=== PATIENT | female | born 1990 | race Caucasian/White ===

== ENCOUNTER 2016-10-18 11:11 | Emergency (ER) | payer OTHER ==
[~2016-10-18] VITALS: Ht 157.5 cm; Wt 48.0 kg
[~2016-10-18 11:11] MED LIST: CLEOCIN300 MG PO; LEXAPRO20 MG PO; MOTRIN600 MG PO; OMEPRAZOLE20 MG PO
[2016-10-18] MEDS ORDERED: LITHIUM CARBON600 MG PO (11:28)
[2016-10-18] MEDS ORDERED: PROPRANOLOL HCL10 MG PO (11:29)
[2016-10-18] MEDS ORDERED: GEODON40 MG PO (11:29)
[2016-10-18] MEDS ORDERED: REGLAN10 MG PO (15:12)
[2016-10-18] MEDS ORDERED: NAPROSYN500 MG PO (15:12)
[2016-10-18] MEDS ORDERED: IMITREX100 MG PO (15:12)
[2016-10-18 16:20] LABS: ADD MIUA? YES; BILIRUBIN NEGATIVE; BLOOD NEGATIVE; COLOR YELLOW ((YELLOW)); GLUCOSE (STRIP) NEGATIVE; KETONES 15; LEUKOCYTES SMALL; NITRITE NEGATIVE; PROTEIN (STRIP) NEGATIVE; SPECIFIC GRAVITY 1.001 (1.000-1.030); UROBILINOGEN 0.2 MG/DL (0.2-1.0)
[2016-10-18 16:50] VITALS: BP 98/53
[2016-10-18 17:01] LABS: RED BLOOD CELLS NONE SEEN /HPF (0-5)
[2016-10-18 17:02] LABS: BACTERIA RARE; EPITHELIAL CELLS 1+; MUCUS 1+; WHITE BLOOD CELLS 0-5 /HPF (0-5)
[2016-10-18 17:03] LABS: CASTS NONE SEEN /LPF; CRYSTALS NONE SEEN
== END 2016-10-18 16:51 | disposition home or self-care (01) ==
LOC: EME 11:11
PROVIDERS: Physician Assistant
DX: G43.909 Migraine, unspecified, not intractable, without status migrainosus (principal); H65.193 Other acute nonsuppurative otitis media, bilateral; J30.9 Allergic rhinitis, unspecified
CPT/HCPCS: 81003; 99281; 99284; J1200; J1885; J2765; J2930; J7030

== ENCOUNTER 2016-11-28 01:48 | Emergency (ER) | payer OTHER ==
[~2016-11-28] VITALS: Ht 160 cm; Wt 49.8 kg
[~2016-11-28 01:48] MED LIST changes: +GEODON40 MG PO; +IMITREX100 MG PO; +LITHIUM CARBON600 MG PO; +NAPROSYN500 MG PO; +PROPRANOLOL HCL10 MG PO; +REGLAN10 MG PO
[2016-11-28] MEDS ORDERED: NARCAN4 MG NS (02:05)
[2016-11-28 04:36] VITALS: BP 97/70
== END 2016-11-28 04:37 | disposition home or self-care (01) ==
LOC: EME 01:48
DX: T40.1X1A Poisoning by heroin, accidental (unintentional), initial encounter (principal); R51 Headache; Z87.891 Personal history of nicotine dependence
CPT/HCPCS: 80048; 81003; 84702; 85025; 99281; 99284; G0480; J2310

== ENCOUNTER 2016-12-04 17:55 | Emergency (ER) | payer OTHER ==
[~2016-12-04] VITALS: Ht 157.5 cm; Wt 49.1 kg
[~2016-12-04 17:55] MED LIST changes: +NARCAN4 MG NS
[2016-12-04 19:14] LABS: ADD MIUA? YES; BILIRUBIN NEGATIVE; BLOOD NEGATIVE; COLOR YELLOW ((YELLOW)); GLUCOSE (STRIP) NEGATIVE; KETONES NEGATIVE; LEUKOCYTES NEGATIVE; NITRITE NEGATIVE; PROTEIN (STRIP) NEGATIVE; UROBILINOGEN 0.2 MG/DL (0.2-1.0)
[2016-12-04 19:28] LABS: BACTERIA NONE SEEN /HPF; EPITHELIAL CELLS 2+ /HPF; HYALINE CASTS 0-5 /LPF; MUCUS NONE SEEN /LPF; RED BLOOD CELLS 0-5 /HPF (0-5); WHITE BLOOD CELLS 0-5 /HPF (0-5)
[2016-12-04] MEDS ORDERED: REGLAN10 MG PO (19:39)
[2016-12-04] MEDS ORDERED: NAPROSYN500 MG PO (19:54)
[2016-12-04 20:48] VITALS: BP 90/51
== END 2016-12-04 20:49 | disposition home or self-care (01) ==
LOC: EME 17:55
PROVIDERS: Physician Assistant
DX: G43.909 Migraine, unspecified, not intractable, without status migrainosus (principal); R56.9 Unspecified convulsions; F17.200 Nicotine dependence, unspecified, uncomplicated
CPT/HCPCS: 81003; 99281; 99285; J1200; J1885; J2765; J7030